=== PATIENT | male | born 1985 | race Two or more races ===

== ENCOUNTER → 2019-12-17 | Outpatient (CLI) | payer OTHER | END | disposition home or self-care (01) | LOC: LAB 03:42 | DX: Z03.818 Encounter for observation for suspected exposure to other biological agents ruled out (principal) | CPT/HCPCS: U0003-CS ==

== ENCOUNTER 2020-02-10 04:00 | Emergency (ER) | payer OTHER ==
[~2020-02-10] VITALS: Ht 175.3 cm; Wt 73.9 kg
[2020-02-10 04:00] VITALS: BP 125/63
== END 2020-02-10 04:55 | disposition home or self-care (01) ==
LOC: ER 04:01
DX: Z03.818 Encounter for observation for suspected exposure to other biological agents ruled out (principal)
CPT/HCPCS: 99283; C9803; U0003

== ENCOUNTER 2020-03-02 04:00 | Emergency (ER) | payer OTHER ==
[~2020-03-02] VITALS: Ht 175.3 cm; Wt 73.9 kg
[2020-03-02 04:03] VITALS: BP 132/62
--- NOTE | 2020-03-02 04:14 | NUR ---
COVID SWAB DONE AND SENT TO LAB.
== END 2020-03-02 04:16 | disposition home or self-care (01) ==
LOC: ER 04:00
DX: Z20.828 Contact with and (suspected) exposure to other viral communicable diseases (principal)

== ENCOUNTER 2020-03-09 03:58 | Emergency (ER) | payer OTHER ==
[~2020-03-09] VITALS: Ht 175.3 cm; Wt 73.9 kg
[2020-03-09 03:58] VITALS: BP 120/65
== END 2020-03-09 04:10 | disposition home or self-care (01) ==
LOC: ER 04:00
DX: Z20.828 Contact with and (suspected) exposure to other viral communicable diseases (principal)
CPT/HCPCS: 99283; C9803; U0003

== ENCOUNTER 2020-03-16 03:49 | Emergency (ER) | payer OTHER ==
[~2020-03-16] VITALS: Ht 175.3 cm; Wt 73.9 kg
[2020-03-16 03:50] VITALS: BP 118/79
--- NOTE | 2020-03-16 04:00 | NUR ---
COVID SWAB DONE AND SENT TO LAB
== END 2020-03-16 04:04 | disposition home or self-care (01) ==
LOC: ER 03:49
DX: Z20.828 Contact with and (suspected) exposure to other viral communicable diseases (principal)
CPT/HCPCS: 99283; C9803; U0003

== ENCOUNTER 2020-03-24 03:17 | Emergency (ER) | payer OTHER ==
[~2020-03-24] VITALS: Ht 175.3 cm; Wt 73.9 kg
[2020-03-24 03:21] VITALS: BP 132/62
--- NOTE | 2020-03-24 03:36 | NUR ---
COVID SWAB COLLECT AND SENT TO LAB.
== END 2020-03-24 03:36 | disposition home or self-care (01) ==
LOC: ER 03:17
DX: Z20.828 Contact with and (suspected) exposure to other viral communicable diseases (principal)
CPT/HCPCS: 99283; C9803; U0003

== ENCOUNTER 2020-04-14 02:15 | Emergency (ER) | payer OTHER ==
[~2020-04-14] VITALS: Ht 175.3 cm; Wt 73.9 kg
[2020-04-14 02:18] VITALS: BP 134/79
== END 2020-04-14 02:30 | disposition home or self-care (01) ==
LOC: ER 02:17
DX: Z20.828 Contact with and (suspected) exposure to other viral communicable diseases (principal)
CPT/HCPCS: 99283; C9803; U0003

== ENCOUNTER 2020-04-19 01:40 | Emergency (ER) | payer OTHER ==
[~2020-04-19] VITALS: Ht 175.3 cm; Wt 73.9 kg
[2020-04-19 01:41] VITALS: BP 127/62
== END 2020-04-19 01:58 | disposition home or self-care (01) ==
LOC: ER 01:42
DX: Z20.828 Contact with and (suspected) exposure to other viral communicable diseases (principal)
CPT/HCPCS: 99283; C9803; U0003

== ENCOUNTER 2020-04-26 01:31 | Emergency (ER) | payer OTHER ==
[~2020-04-26] VITALS: Ht 175.3 cm; Wt 73.9 kg
[2020-04-26 01:34] VITALS: BP 128/64
--- NOTE | 2020-04-26 01:51 | NUR ---
UNABLE TO DEPART PT DUE TO MEDITECH ERROR APPLICATION.
== END 2020-04-26 01:51 | disposition home or self-care (01) ==
LOC: ER 01:31
DX: Z20.828 Contact with and (suspected) exposure to other viral communicable diseases (principal)
CPT/HCPCS: 99283; C9803; U0003

== ENCOUNTER 2020-05-05 03:30 | Emergency (ER) | payer OTHER ==
[~2020-05-05] VITALS: Ht 175.3 cm; Wt 72.6 kg
[2020-05-05 03:35] VITALS: BP 128/71
== END 2020-05-05 03:44 | disposition home or self-care (01) ==
LOC: ER 03:30
DX: Z20.828 Contact with and (suspected) exposure to other viral communicable diseases (principal)
CPT/HCPCS: 99283; C9803; U0003

== ENCOUNTER 2020-05-13 21:26 | Emergency (ER) | payer OTHER ==
[~2020-05-13] VITALS: Ht 175.3 cm; Wt 72.6 kg
[2020-05-13 21:30] VITALS: BP 128/85
--- NOTE | 2020-05-13 21:33 | NUR ---
CALLED LAB FOR COVID SWAB
--- NOTE | 2020-05-13 21:39 | NUR ---
COVID SWAB COLLECTED. SENT TO LAB
== END 2020-05-13 21:40 | disposition home or self-care (01) ==
LOC: ER 21:27
DX: Z20.828 Contact with and (suspected) exposure to other viral communicable diseases (principal)
CPT/HCPCS: 99283; C9803; U0003

== ENCOUNTER 2020-05-17 05:55 | Emergency (ER) | payer OTHER ==
[~2020-05-17] VITALS: Ht 175.3 cm; Wt 72.6 kg
[2020-05-17 06:07] VITALS: BP 134/62
== END 2020-05-17 06:20 | disposition home or self-care (01) ==
LOC: ER 05:58
DX: Z20.828 Contact with and (suspected) exposure to other viral communicable diseases (principal)
CPT/HCPCS: 99283; C9803; U0003

== ENCOUNTER 2020-05-25 22:58 | Emergency (ER) | payer OTHER ==
[~2020-05-25] VITALS: Ht 167.6 cm; Wt 72.6 kg
[2020-05-25 23:01] VITALS: BP 132/77
== END 2020-05-25 23:10 | disposition home or self-care (01) ==
LOC: ER 23:03
DX: Z20.828 Contact with and (suspected) exposure to other viral communicable diseases (principal)
CPT/HCPCS: 99283; U0003; C9803

== ENCOUNTER 2020-05-31 04:25 | Emergency (ER) | payer OTHER ==
[~2020-05-31] VITALS: Ht 167.6 cm; Wt 72.6 kg
[2020-05-31 04:25] VITALS: BP 138/74
== END 2020-05-31 04:50 | disposition home or self-care (01) ==
LOC: ER 04:25
DX: Z20.828 Contact with and (suspected) exposure to other viral communicable diseases (principal)
CPT/HCPCS: 99283; C9803; U0003

== ENCOUNTER 2020-06-07 05:14 | Emergency (ER) | payer OTHER ==
[~2020-06-07] VITALS: Ht 167.6 cm; Wt 72.6 kg
[2020-06-07 05:15] VITALS: BP 131/82
== END 2020-06-07 05:36 | disposition home or self-care (01) ==
LOC: ER 05:14
DX: Z20.828 Contact with and (suspected) exposure to other viral communicable diseases (principal)
CPT/HCPCS: 99283; C9803; U0003

== ENCOUNTER 2020-06-22 04:13 | Emergency (ER) | payer OTHER ==
[~2020-06-22] VITALS: Ht 175.3 cm; Wt 73.9 kg
[2020-06-22 04:14] VITALS: BP 102/65
== END 2020-06-22 04:40 | disposition home or self-care (01) ==
LOC: ER 04:15
DX: Z20.828 Contact with and (suspected) exposure to other viral communicable diseases (principal)
CPT/HCPCS: 99283; C9803; U0003

== ENCOUNTER 2020-06-25 02:34 | Emergency (ER) | payer OTHER ==
[~2020-06-25] VITALS: Ht 175.3 cm; Wt 73.9 kg
[2020-06-25 02:35] VITALS: BP 111/65
== END 2020-06-25 02:53 | disposition home or self-care (01) ==
LOC: ER 02:34
DX: Z20.828 Contact with and (suspected) exposure to other viral communicable diseases (principal)
CPT/HCPCS: 99283; C9803; U0003

== ENCOUNTER 2020-06-29 03:08 | Emergency (ER) | payer OTHER ==
[~2020-06-29] VITALS: Ht 175.3 cm; Wt 72.6 kg
[2020-06-29 03:10] VITALS: BP 127/62
== END 2020-06-29 03:26 | disposition home or self-care (01) ==
LOC: ER 03:12
DX: Z20.828 Contact with and (suspected) exposure to other viral communicable diseases (principal)
CPT/HCPCS: 99283; C9803; U0003

== ENCOUNTER 2020-07-02 20:46 | Emergency (ER) | payer OTHER ==
[~2020-07-02] VITALS: Ht 175.3 cm; Wt 72.6 kg
[2020-07-02 20:48] VITALS: BP 125/61
--- NOTE | 2020-07-03 22:44 | NUR ---
LAB CALLED REGARDING NEGATIVE COVID RESULT
== END 2020-07-02 21:00 | disposition home or self-care (01) ==
LOC: ER 20:47
DX: Z20.828 Contact with and (suspected) exposure to other viral communicable diseases (principal)
CPT/HCPCS: 99283; C9803; U0003

== ENCOUNTER 2020-07-05 03:53 | Emergency (ER) | payer OTHER ==
[~2020-07-05] VITALS: Ht 175.3 cm; Wt 72.6 kg
[2020-07-05 03:55] VITALS: BP 135/64
== END 2020-07-05 04:17 | disposition home or self-care (01) ==
LOC: ER 03:53
DX: Z20.828 Contact with and (suspected) exposure to other viral communicable diseases (principal)
CPT/HCPCS: 99283; C9803; U0003

== ENCOUNTER 2020-07-09 03:10 | Emergency (ER) | payer OTHER ==
[~2020-07-09] VITALS: Ht 175.3 cm; Wt 72.6 kg
[2020-07-09 03:10] VITALS: BP 114/83
== END 2020-07-09 03:25 | disposition home or self-care (01) ==
LOC: ER 03:11
DX: Z20.828 Contact with and (suspected) exposure to other viral communicable diseases (principal)
CPT/HCPCS: 99283; C9803; U0003

== ENCOUNTER 2020-07-11 22:14 | Emergency (ER) | payer OTHER ==
[~2020-07-11] VITALS: Ht 175.3 cm; Wt 72.6 kg
[2020-07-11 22:20] VITALS: BP 137/84
== END 2020-07-11 22:31 | disposition home or self-care (01) ==
LOC: ER 22:14
DX: Z20.828 Contact with and (suspected) exposure to other viral communicable diseases (principal)
CPT/HCPCS: 99283; C9803; U0003

== ENCOUNTER 2020-07-18 00:03 | Emergency (ER) | payer OTHER ==
[~2020-07-18] VITALS: Ht 167.6 cm; Wt 60.8 kg
[2020-07-18 00:11] VITALS: BP 124/68
== END 2020-07-18 00:36 | disposition home or self-care (01) ==
LOC: ER 00:11
DX: Z20.828 Contact with and (suspected) exposure to other viral communicable diseases (principal)
CPT/HCPCS: 99283; C9803; U0003

== ENCOUNTER 2020-07-21 03:02 | Emergency (ER) | payer OTHER ==
[~2020-07-21] VITALS: Ht 167.6 cm; Wt 60.8 kg
[2020-07-21 03:04] VITALS: BP 132/65
== END 2020-07-21 03:18 | disposition home or self-care (01) ==
LOC: ER 03:07
DX: Z20.828 Contact with and (suspected) exposure to other viral communicable diseases (principal)
CPT/HCPCS: 99283; C9803; U0003

== ENCOUNTER 2020-07-23 05:35 | Emergency (ER) | payer OTHER ==
[~2020-07-23] VITALS: Ht 167.6 cm; Wt 60.8 kg
[2020-07-23 05:37] VITALS: BP 113/65
--- NOTE | 2020-07-24 23:55 | NUR ---
LAB CALLED REGARDING NEGATIVE COVID RESULT.
== END 2020-07-23 05:48 | disposition home or self-care (01) ==
LOC: ER 05:35
DX: Z20.828 Contact with and (suspected) exposure to other viral communicable diseases (principal)
CPT/HCPCS: 99283; C9803; U0003

== ENCOUNTER 2020-07-26 02:33 | Emergency (ER) | payer OTHER ==
[~2020-07-26] VITALS: Ht 167.6 cm; Wt 61.2 kg
[2020-07-26 02:42] VITALS: BP 132/64
== END 2020-07-26 02:49 | disposition home or self-care (01) ==
LOC: ER 02:33
DX: Z20.822 Contact with and (suspected) exposure to COVID-19 (principal)
CPT/HCPCS: 99283; C9803; U0003

== ENCOUNTER 2020-07-28 04:45 | Emergency (ER) | payer OTHER ==
[~2020-07-28] VITALS: Ht 167.6 cm; Wt 61.2 kg
[2020-07-28 04:46] VITALS: BP 124/61
== END 2020-07-28 05:46 | disposition home or self-care (01) ==
LOC: ER 04:45
DX: Z20.822 Contact with and (suspected) exposure to COVID-19 (principal)
CPT/HCPCS: 99283; C9803; U0003

== ENCOUNTER 2020-08-02 02:46 | Emergency (ER) | payer OTHER ==
[~2020-08-02] VITALS: Ht 167.6 cm; Wt 61.2 kg
[2020-08-02 02:53] VITALS: BP 124/63
== END 2020-08-02 03:11 | disposition home or self-care (01) ==
LOC: ER 02:46
DX: Z20.822 Contact with and (suspected) exposure to COVID-19 (principal)
CPT/HCPCS: 99283; C9803; U0003

== ENCOUNTER 2020-08-04 03:49 | Emergency (ER) | payer OTHER ==
[~2020-08-04] VITALS: Ht 167.6 cm; Wt 61.2 kg
[2020-08-04 03:52] VITALS: BP 127/63
== END 2020-08-04 06:12 | disposition home or self-care (01) ==
LOC: ER 03:51
DX: Z20.822 Contact with and (suspected) exposure to COVID-19 (principal)
CPT/HCPCS: 99283; C9803; U0003

== ENCOUNTER 2020-08-09 04:24 | Emergency (ER) | payer OTHER ==
[~2020-08-09] VITALS: Ht 167.6 cm; Wt 61.2 kg
[2020-08-09 04:26] VITALS: BP 138/89
== END 2020-08-09 05:03 | disposition home or self-care (01) ==
LOC: ER 04:24
DX: Z20.822 Contact with and (suspected) exposure to COVID-19 (principal)
CPT/HCPCS: 99283; C9803; U0003

== ENCOUNTER 2020-08-16 04:17 | Emergency (ER) | payer OTHER ==
[~2020-08-16] VITALS: Ht 175.3 cm; Wt 73.5 kg
[2020-08-16 04:23] VITALS: BP 127/68
== END 2020-08-16 04:56 | disposition home or self-care (01) ==
LOC: ER 04:17
DX: Z20.822 Contact with and (suspected) exposure to COVID-19 (principal)
CPT/HCPCS: 99283; C9803; U0003

== ENCOUNTER 2020-08-20 01:13 | Emergency (ER) | payer OTHER ==
[~2020-08-20] VITALS: Ht 172.7 cm; Wt 74.4 kg
[2020-08-20 01:17] VITALS: BP 129/76
== END 2020-08-20 01:57 | disposition home or self-care (01) ==
LOC: ER 01:16
DX: Z20.822 Contact with and (suspected) exposure to COVID-19 (principal)
CPT/HCPCS: 99283; C9803; U0003

== ENCOUNTER 2020-08-23 02:07 | Emergency (ER) | payer OTHER ==
[~2020-08-23] VITALS: Ht 172.7 cm; Wt 56.7 kg
[2020-08-23 02:11] VITALS: BP 124/68
== END 2020-08-23 02:33 | disposition home or self-care (01) ==
LOC: ER 02:12
DX: Z20.822 Contact with and (suspected) exposure to COVID-19 (principal)
CPT/HCPCS: 99283; C9803; U0003

== ENCOUNTER 2020-08-24 00:35 | Emergency (ER) | payer OTHER ==
[~2020-08-24] VITALS: Ht 172.7 cm; Wt 56.7 kg
[2020-08-24 00:42] VITALS: BP 135/72
== END 2020-08-24 00:59 | disposition home or self-care (01) ==
LOC: ER 00:37
DX: Z20.822 Contact with and (suspected) exposure to COVID-19 (principal)
CPT/HCPCS: 99283; C9803; U0003

== ENCOUNTER 2020-08-31 03:36 | Emergency (ER) | payer OTHER ==
[~2020-08-31] VITALS: Ht 170.2 cm; Wt 73.0 kg
[2020-08-31 03:38] VITALS: BP 116/72
== END 2020-08-31 05:33 | disposition home or self-care (01) ==
LOC: ER 03:40
DX: Z20.822 Contact with and (suspected) exposure to COVID-19 (principal)
CPT/HCPCS: 99283; C9803; U0003

== ENCOUNTER 2020-09-03 01:28 | Emergency (ER) | payer OTHER ==
[~2020-09-03] VITALS: Ht 170.2 cm; Wt 73.0 kg
[2020-09-03 01:35] VITALS: BP 132/77
== END 2020-09-03 03:14 | disposition home or self-care (01) ==
LOC: ER 01:33
DX: Z20.822 Contact with and (suspected) exposure to COVID-19 (principal)
CPT/HCPCS: 99283; C9803; U0003

== ENCOUNTER 2020-09-06 03:44 | Emergency (ER) | payer OTHER ==
[~2020-09-06] VITALS: Ht 170.2 cm; Wt 72.6 kg
[2020-09-06 03:45] VITALS: BP 134/67
== END 2020-09-06 04:10 | disposition home or self-care (01) ==
LOC: ER 03:44
DX: Z20.822 Contact with and (suspected) exposure to COVID-19 (principal)
CPT/HCPCS: 99283; C9803; U0003

== ENCOUNTER 2020-09-07 03:15 | Emergency (ER) | payer OTHER ==
[~2020-09-07] VITALS: Ht 170.2 cm; Wt 72.6 kg
[2020-09-07 03:21] VITALS: BP 124/64
== END 2020-09-07 05:18 | disposition home or self-care (01) ==
LOC: ER 03:17
DX: Z20.822 Contact with and (suspected) exposure to COVID-19 (principal)
CPT/HCPCS: 99283; C9803; U0003

== ENCOUNTER 2020-09-13 01:23 | Emergency (ER) | payer OTHER ==
[~2020-09-13] VITALS: Ht 170.2 cm; Wt 72.6 kg
[2020-09-13 01:24] VITALS: BP 125/62
== END 2020-09-13 01:44 | disposition home or self-care (01) ==
LOC: ER 01:24
DX: Z13.89 Encounter for screening for other disorder (principal); Z20.822 Contact with and (suspected) exposure to COVID-19
CPT/HCPCS: 99283; C9803; U0003

== ENCOUNTER 2020-09-22 03:27 | Emergency (ER) | payer OTHER ==
[~2020-09-22] VITALS: Ht 170.2 cm; Wt 72.6 kg
[2020-09-22 03:28] VITALS: BP 122/63
== END 2020-09-22 03:37 | disposition home or self-care (01) ==
LOC: ER 03:27
DX: Z20.822 Contact with and (suspected) exposure to COVID-19 (principal)
CPT/HCPCS: 99283; C9803; U0003

== ENCOUNTER 2020-09-28 02:08 | Emergency (ER) | payer OTHER ==
[~2020-09-28] VITALS: Ht 170.2 cm; Wt 72.6 kg
[2020-09-28 02:08] VITALS: BP 117/65
== END 2020-09-28 02:18 | disposition home or self-care (01) ==
LOC: ER 02:10
DX: Z20.822 Contact with and (suspected) exposure to COVID-19 (principal)
CPT/HCPCS: 99283; C9803; U0003

== ENCOUNTER 2020-10-04 03:36 | Emergency (ER) | payer OTHER ==
[~2020-10-04] VITALS: Ht 175.3 cm; Wt 73.5 kg
[2020-10-04 03:37] VITALS: BP 132/61
== END 2020-10-04 04:08 | disposition home or self-care (01) ==
LOC: ER 03:36
DX: Z20.822 Contact with and (suspected) exposure to COVID-19 (principal)
CPT/HCPCS: 99283; C9803; U0003

== ENCOUNTER 2020-10-15 02:30 | Emergency (ER) | payer OTHER ==
[~2020-10-15] VITALS: Ht 175.3 cm; Wt 73.5 kg
[2020-10-15 02:36] VITALS: BP 131/82
== END 2020-10-15 03:00 | disposition home or self-care (01) ==
LOC: ER 02:36
DX: Z20.822 Contact with and (suspected) exposure to COVID-19 (principal)
CPT/HCPCS: 99283; C9803; U0003

== ENCOUNTER 2020-10-26 02:14 | Emergency (ER) | payer OTHER ==
[~2020-10-26] VITALS: Ht 170.2 cm; Wt 72.6 kg
[2020-10-26 02:16] VITALS: BP 125/73
== END 2020-10-26 02:47 | disposition home or self-care (01) ==
LOC: ER 02:18
DX: Z20.822 Contact with and (suspected) exposure to COVID-19 (principal)
CPT/HCPCS: 99283; C9803; U0003

== ENCOUNTER 2020-10-31 23:18 | Emergency (ER) | payer OTHER ==
[~2020-10-31] VITALS: Ht 170.2 cm; Wt 72.6 kg
[2020-10-31 23:18] VITALS: BP 128/67
== END 2020-11-01 00:12 | disposition home or self-care (01) ==
LOC: ER 23:18
DX: Z20.822 Contact with and (suspected) exposure to COVID-19 (principal)
CPT/HCPCS: 99283; C9803; U0003

== ENCOUNTER 2020-11-05 01:53 | Emergency (ER) | payer OTHER ==
[~2020-11-05] VITALS: Ht 170.2 cm; Wt 72.6 kg
[2020-11-05 01:54] VITALS: BP 128/85
== END 2020-11-05 02:48 | disposition home or self-care (01) ==
LOC: ER 01:54
DX: Z20.822 Contact with and (suspected) exposure to COVID-19 (principal)
CPT/HCPCS: 99283; C9803; U0003

== ENCOUNTER 2020-11-14 22:45 | Emergency (ER) | payer OTHER ==
[~2020-11-14] VITALS: Ht 170.2 cm; Wt 72.6 kg
[2020-11-14 22:47] VITALS: BP 128/79
== END 2020-11-14 23:03 | disposition home or self-care (01) ==
LOC: ER 22:45
DX: Z20.822 Contact with and (suspected) exposure to COVID-19 (principal)
CPT/HCPCS: 99283; C9803; U0003

== ENCOUNTER 2020-11-18 23:27 | Emergency (ER) | payer OTHER ==
[~2020-11-18] VITALS: Ht 170.2 cm; Wt 72.6 kg
[2020-11-18 23:27] VITALS: BP 119/70
== END 2020-11-18 23:55 | disposition home or self-care (01) ==
LOC: ER 23:28
DX: Z20.822 Contact with and (suspected) exposure to COVID-19 (principal)
CPT/HCPCS: 99283; C9803; U0003

== ENCOUNTER 2020-12-06 01:03 | Emergency (ER) | payer OTHER ==
[~2020-12-06] VITALS: Ht 170.2 cm; Wt 72.6 kg
[2020-12-06 01:14] VITALS: BP 132/77
== END 2020-12-06 01:23 | disposition home or self-care (01) ==
LOC: ER 01:03
DX: Z20.822 Contact with and (suspected) exposure to COVID-19 (principal)
CPT/HCPCS: 99283; C9803; U0003

== ENCOUNTER 2020-12-12 21:16 | Emergency (ER) | payer OTHER ==
[~2020-12-12] VITALS: Ht 172.7 cm; Wt 76.2 kg
[2020-12-12 21:21] VITALS: BP 125/68
--- NOTE | 2020-12-12 21:27 | NUR ---
coivd swab sent to lab
== END 2020-12-12 21:28 | disposition home or self-care (01) ==
LOC: ER 21:16
DX: Z20.822 Contact with and (suspected) exposure to COVID-19 (principal)
CPT/HCPCS: 99283; C9803; U0003

== ENCOUNTER 2020-12-21 02:02 | Emergency (ER) | payer OTHER ==
[~2020-12-21] VITALS: Ht 172.7 cm; Wt 72.6 kg
[2020-12-21 02:03] VITALS: BP 123/77
== END 2020-12-21 02:23 | disposition home or self-care (01) ==
LOC: ER 02:02
DX: Z20.822 Contact with and (suspected) exposure to COVID-19 (principal)
CPT/HCPCS: 99283; C9803; U0003

== ENCOUNTER 2020-12-28 02:53 | Emergency (ER) | payer OTHER ==
[~2020-12-28] VITALS: Ht 172.7 cm; Wt 72.6 kg
[2020-12-28 02:55] VITALS: BP 129/67
== END 2020-12-28 03:48 | disposition home or self-care (01) ==
LOC: ER 02:58
DX: Z20.822 Contact with and (suspected) exposure to COVID-19 (principal)
CPT/HCPCS: 99283; C9803; U0003

== ENCOUNTER 2021-01-17 21:04 | Emergency (ER) | payer OTHER ==
[~2021-01-17] VITALS: Ht 172.7 cm; Wt 72.6 kg
[2021-01-17 21:04] VITALS: BP 121/81
== END 2021-01-17 21:25 | disposition home or self-care (01) ==
LOC: ER 21:07
DX: Z20.822 Contact with and (suspected) exposure to COVID-19 (principal)
CPT/HCPCS: 99283; C9803; U0003

== ENCOUNTER 2021-04-02 01:18 | Emergency (ER) | payer OTHER ==
[~2021-04-02] VITALS: Ht 175.3 cm; Wt 75.7 kg
[2021-04-02 01:30] VITALS: BP 128/91
--- NOTE | 2021-04-02 02:00 | NUR ---
Patient discharged to home in stable condition. Written and verbal after care instructions given. Patient verbalizes understanding of instruction. Pt ambulatory with a steady gait. Covid Swab sent to lab
== END 2021-04-02 02:31 | disposition home or self-care (01) ==
LOC: ER 01:19
DX: Z20.822 Contact with and (suspected) exposure to COVID-19 (principal)
CPT/HCPCS: 99283; C9803; U0003

== ENCOUNTER 2021-07-08 00:41 | Emergency (ER) | payer OTHER ==
[~2021-07-08] VITALS: Ht 172.7 cm; Wt 74.4 kg
[2021-07-08 00:47] VITALS: BP 116/62
== END 2021-07-08 01:34 | disposition home or self-care (01) ==
LOC: ER 00:45
DX: Z20.822 Contact with and (suspected) exposure to COVID-19 (principal)
CPT/HCPCS: 99283; C9803; U0003

== ENCOUNTER 2021-07-21 09:14 | Emergency (ER) | payer OTHER ==
[~2021-07-21] VITALS: Ht 175.3 cm; Wt 73.5 kg
[2021-07-21 09:26] VITALS: BP 125/84
--- NOTE | 2021-07-22 17:47 | NUR ---
LEFT VOICE MESSAGE NOTIFYING PT'S COVID PCR RESULT (+) [phone]
== END 2021-07-21 10:51 | disposition home or self-care (01) ==
LOC: ER 09:15
DX: U07.1 COVID-19 (principal)
CPT/HCPCS: 99283; C9803; U0003

== ENCOUNTER 2021-07-27 07:39 | Emergency (ER) | payer OTHER ==
[~2021-07-27] VITALS: Ht 175.3 cm; Wt 73.5 kg
[2021-07-27 07:50] VITALS: BP 144/88
--- NOTE | 2021-07-27 07:54 | NUR ---
SEEN AND EXAMINED BY .
--- NOTE | 2021-07-27 08:00 | NUR ---
THE PATIENT BIBS FOR COVID TESTING. DENIES ANY SYMPTOMS AT THIS TIME. RESPIRATION REGULAR AND UNLABORED. WILL CONTINUE TO MONITOR THE PATIENT.
--- NOTE | 2021-07-27 08:42 | NUR ---
PER NURSE ZACH HE DID COVID SWAB DONE AND SENT TO THE LAB
--- NOTE | 2021-07-27 08:55 | NUR ---
Patient discharged to home in stable condition. Written and verbal after care instructions given. Patient verbalizes understanding of instruction.
--- NOTE | 2021-07-27 09:14 | NUR ---
RECEIVED A CALL FROM LAB STATING THAT THE PATIENT IS COVID POSITIVE. MADE THE PATIENT AWARE, PROVIDED EDUCATION AND THE PATIENT VERBALIZED UNDERSTANDING.
== END 2021-07-27 08:56 | disposition home or self-care (01) ==
LOC: EDUNIT# 07:39 → ER 07:41
DX: U07.1 COVID-19 (principal); R03.0 Elevated blood-pressure reading, without diagnosis of hypertension
CPT/HCPCS: 87426; 99283; C9803

== ENCOUNTER 2021-07-29 22:10 | Emergency (ER) | payer OTHER ==
[~2021-07-29] VITALS: Ht 175.3 cm; Wt 73.5 kg
[2021-07-29 22:25] VITALS: BP 128/78
--- NOTE | 2021-07-29 23:16 | NUR ---
COVID SWAB DONE AND SENT TO LAB
--- NOTE | 2021-07-29 23:17 | NUR ---
Patient discharged to home in stable condition. Written and verbal after care instructions given. Patient verbalizes understanding of instruction. Pt ambulatory with a steady gait
== END 2021-07-29 23:17 | disposition home or self-care (01) ==
LOC: ER 22:10
DX: U07.1 COVID-19 (principal); Z60.2 Problems related to living alone
CPT/HCPCS: 87426; 99283; C9803; U0003

== ENCOUNTER 2022-03-31 13:53 | Outpatient (CLI) | payer BC ==
[2022-03-31 15:13] LABS: BASOPHILS # (AUTO) 0.1 K/uL (0.0-0.2); BASOPHILS % (AUTO) 0.9 % (0.0-2.0); EOSINOPHILS % (AUTO) 5.1 % (0.0-6.0); HEMATOCRIT 47 % (39-51); HEMOGLOBIN 15.7 g/dL (13.5-17.5); LYMPHOCYTES # (AUTO) 1.3 K/uL (0.8-4.8); LYMPHOCYTES % (AUTO) 22.9 % (20.0-44.0); MEAN CORPUSCULAR HGB CONC 33 g/dl (31.0-36.0); MEAN CORPUSCULAR VOLUME 84 fL (80-96); MONOCYTES # (AUTO) 0.4 K/uL (0.1-1.30); MONOCYTES % (AUTO) 7.4 % (2.0-12.0); NEUTROPHILS # (AUTO) 3.7 K/uL (1.8-8.9); NEUTROPHILS % (AUTO) 63.7 % (43.0-81.0); PLATELET COUNT (AUTO) 185 K/uL (150-450); RED BLOOD CELL COUNT(AUTO) 5.63 MIL/uL (4.5-6.0); WHITE BLOOD COUNT (AUTO) 5.7 K/uL (4.3-11.0)
[2022-03-31 15:45] LABS: BILIRUBIN,URINE NEGATIVE (NEGATIVE); COLOR,URINE YELLOW (YELLOW); LEUKOCYTE ESTERASE ,URINE NEGATIVE (NEGATIVE); NITRITE, URINE NEGATIVE (NEGATIVE); PROTEIN,URINE NEGATIVE (NEGATIVE); UGLUCOSE NEGATIVE (NEGATIVE); UROBILINOGEN,URINE 0.2 EU/dL (0.2)
[2022-03-31 15:54] LABS: BACTERIA,URINE RARE /HPF (None Seen); MUCUS,URINE Few /LPF (None Seen); WBC,URINE 0-2 /HPF (0-3)
[2022-03-31 16:08] LABS: FREE T4 (FREE THYROXINE) 1.1 ng/dL (0.76-1.46); THYROID STIMULATING HORMONE 0.391 uIU/mL (0.358-3.74); URIC ACID 5.6 mg/dL (2.6-7.2)
[2022-03-31 16:13] LABS: EOSINOPHILS % (MANUAL) 4 % (0-4); LYMPHOCYTES % (MANUAL) 30 % (16-48); MONOCYTES % (MANUAL) 9 % (0-11.0); NEUTROPHILS % (MANUAL) 57 (42-76)
[2022-03-31 16:25] LABS: ALBUMIN 4.3 g/dL (3.4-5.0); BILIRUBIN,TOTAL 1.3 mg/dL (0.2-1.0); CALCIUM, SERUM 8.8 mg/dL (8.5-10.1); CREATININE 0.8 mg/dL (0.6-1.3); POTASSIUM 3.8 mmol/L (3.5-5.1); TOTAL PROTEIN, SERUM 7.6 g/dL (6.4-8.2)
[2022-04-01 07:07] LABS: THYROID PEROXIDASE (TPO) AB <8 IU/mL (0-34)
== END 2022-03-31 23:59 | disposition home or self-care (01) ==
LOC: LAB 13:53
PROVIDERS: ATTEND Legal Medicine
DX: Z00.00 Encounter for general adult medical examination without abnormal findings (principal); R53.1 Weakness; E11.9 Type 2 diabetes mellitus without complications; E55.9 Vitamin D deficiency, unspecified; E78.00 Pure hypercholesterolemia, unspecified; E03.9 Hypothyroidism, unspecified; D64.9 Anemia, unspecified
CPT/HCPCS: 80053-TC; 80061-TC; 81001; 82306; 82607-TC; 82728-TC; 83540-TC; 84402; 84403; 84439-TC; 84443-TC; 84550-TC; 85025-TC; 86376; 86592; 86593; 86694; 86800; 86803; 87491; 87591; 87806